=== PATIENT | female | born 1945 | race Hispanic/Latino ===

== ENCOUNTER 2020-09-19 01:21 | Emergency (ER) | payer OTHER ==
[~2020-09-19] VITALS: Ht 165.1 cm; Wt 60.3 kg
[2020-09-19 02:25] VITALS: BP 148/73; TEMP 98.1
== END 2020-09-19 02:25 | disposition home or self-care (01) ==
LOC: ED 01:21
DX: R33.8 Other retention of urine (principal); T83.091A Other mechanical complication of indwelling urethral catheter, initial encounter; Z98.890 Other specified postprocedural states
CPT/HCPCS: 99282

== ENCOUNTER 2020-11-27 14:23 | Outpatient (CLI) | payer OTHER | END 2020-11-27 22:36 | disposition home or self-care (01) | LOC: MAMMO 14:23 | PROVIDERS: ATTEND Specialist | DX: Z12.31 Encounter for screening mammogram for malignant neoplasm of breast (principal) ==

== ENCOUNTER 2021-05-12 09:03 | Outpatient (CLI) | payer OTHER | END 2021-05-12 19:44 | disposition home or self-care (01) | LOC: US 09:03 | PROVIDERS: ATTEND Internal Medicine | DX: I73.9 Peripheral vascular disease, unspecified (principal); M79.605 Pain in left leg; M79.604 Pain in right leg; I10 Essential (primary) hypertension ==

== ENCOUNTER 2021-05-25 10:05 | Emergency (ER) | payer OTHER ==
[~2021-05-25] VITALS: Ht 165.1 cm; Wt 59.4 kg
[2021-05-25 10:33] LABS: PLATELET COUNT 243 K/uL (152-353)
[2021-05-25 10:37] LABS: POTASSIUM 4.4 mmol/L (3.6-5.2)
[2021-05-25 11:38] LABS: PARTIAL THROMBOPLASTIN TIME 29.1 SECONDS (24.5-33.6)
[2021-05-25 12:30] VITALS: BP 141/90; TEMP 98.7
== END 2021-05-25 12:30 | disposition short-term general hospital (02) ==
LOC: ED 10:05
PROVIDERS: Hospitalist
DX: I21.4 Non-ST elevation (NSTEMI) myocardial infarction (principal); Z11.52 Encounter for screening for COVID-19
CPT/HCPCS: 80053; 82550; 83880; 84484; 85027; 85610; 85730; 87635; 93005; 96365; 96375; 99284; J1644; U0003

== ENCOUNTER 2021-06-09 15:34 | Outpatient (CLI) | payer OTHER | END 2021-06-09 19:04 | disposition home or self-care (01) | LOC: LABW 15:34 | PROVIDERS: ATTEND Internal Medicine Cardiovascular Disease | DX: I51.4 Myocarditis, unspecified (principal) | CPT/HCPCS: 36415; 84484; 86140 ==

== ENCOUNTER 2021-08-20 14:52 | Outpatient (CLI) | payer OTHER | END 2021-08-20 20:56 | disposition home or self-care (01) | LOC: US 14:52 | PROVIDERS: ATTEND Internal Medicine | DX: R42 Dizziness and giddiness (principal) ==

== ENCOUNTER 2021-12-28 12:53 | Outpatient (CLI) | payer OTHER | END 2021-12-28 20:15 | disposition home or self-care (01) | LOC: MAMMO 12:53 | PROVIDERS: ATTEND Specialist | DX: Z12.31 Encounter for screening mammogram for malignant neoplasm of breast (principal) ==

== ENCOUNTER 2022-01-05 13:25 | Outpatient (CLI) | payer OTHER | END 2022-01-05 20:02 | disposition home or self-care (01) | LOC: MAMMO 13:25 | PROVIDERS: ATTEND Specialist | DX: R92.8 Other abnormal and inconclusive findings on diagnostic imaging of breast (principal) ==

== ENCOUNTER 2022-01-12 14:58 | Outpatient (CLI) | payer OTHER | END 2022-01-12 19:39 | disposition home or self-care (01) | LOC: US 14:58 | PROVIDERS: ATTEND Specialist | DX: R92.8 Other abnormal and inconclusive findings on diagnostic imaging of breast (principal) ==

== ENCOUNTER 2023-02-28 13:26 | Outpatient (CLI) | payer OTHER | END 2023-02-28 18:56 | disposition home or self-care (01) | LOC: MAMMO 13:26 | PROVIDERS: ATTEND Specialist | DX: Z12.31 Encounter for screening mammogram for malignant neoplasm of breast (principal) ==